=== PATIENT | female | born 1960 | race American Indian/Alaskan Native ===

== ENCOUNTER 2017-10-10 11:57 | Emergency (ER) | payer BC, OTHER ==
[2017-10-10 12:04] VITALS: RESP 18; TEMP 98.4; BMI 32.1
[2017-10-10] MEDS ORDERED: Acetaminophen 650mg/20.3ml solution UD PO STA (12:25)
[2017-10-10 13:16] LABS: BASO # 0.03 K/mm3 (0.0-2.0); BASO % 0.6 % (0.0-3.0); EOS # 0.2 (0.0-0.7); EOS % 3.2 % (1.5-5.0); GRAN # 2.77 (1.4-6.5); GRAN % 52.3 % (50.0-68.0); HEMOGLOBIN 11.8 g/dL (12.0-16.0); LYMPH # 2.1 (1.2-3.4); LYMPH % 39.6 % (22.0-35.0); MEAN CELL VOLUME 93.2 fl (80.0-105.0); MEAN CORPUSCULAR HGB CONC 33.2 g/dl (31.0-37.0); MEAN PLATELET VOLUME 8.9 fl (7.0-11.0); MONO # 0.2 (0.1-0.6); MONO % 4.3 % (1.0-6.0); RBC 3.81 10^6/uL (3.5-6.1); RED CELL DISTRIBUTION WIDTH 12.7 % (11.5-14.5); URINE APPEARANCE CLEAR (CLEAR); URINE BILIRUBIN NEGATIVE (NEGATIVE); URINE BLOOD NEGATIVE (NEGATIVE); URINE COLOR YELLOW (YELLOW); URINE GLUCOSE (UA) NEGATIVE (NEGATIVE); URINE LEUKOCYTE ESTERASE LARGE Leu/uL (NEGATIVE); URINE PROTEIN NEGATIVE mg/dL (<30 mg/dL); URINE UROBILINOGEN 0.2 E.U./dL (<1 E.U./dL); WHITE BLOOD COUNT 5.3 10^3/ul (4.5-11.0)
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
[2017-10-10 13:27] LABS: ALB/GLOB RATIO 1.1 (1.1-1.8); ALT/SGPT 29 U/L (7-56); AST/SGOT 24 U/L (14-36); BLOOD UREA NITROGEN 18 mg/dL (7-21); CALCIUM 9.3 mg/dL (8.4-10.5); GFR AFRICAN-AMERICAN > 60; GFR NON-AFRICAN AMERICAN > 60
[2017-10-10 13:29] LABS: INR 0.97 (0.93-1.08); PARTIAL THROMBOPLASTIN TIME 28.8 Seconds (25.1-36.5); PROTHROMBIN TIME 11.1 SECONDS (9.4-12.5)
--- NOTE | 2017-10-10 13:32 | CT ---
PROCEDURE: CT HEAD WITHOUT CONTRAST. HISTORY: reardon COMPARISON: 07/07/2015 TECHNIQUE: Axial computed tomography images were obtained through the head/brain without intravenous contrast. Radiation dose: Total exam DLP = 911 mGy-cm. This CT exam was performed using one or more of the following dose reduction techniques: Automated exposure control, adjustment of the mA and/or kV according to patient size, and/or use of iterative reconstruction technique. FINDINGS: HEMORRHAGE: No intracranial hemorrhage. BRAIN: No mass effect or edema. No atrophy or chronic microvascular ischemic changes. VENTRICLES: Unremarkable. No hydrocephalus. CALVARIUM: Unremarkable. PARANASAL SINUSES: Unremarkable as visualized. No significant inflammatory changes. MASTOID AIR CELLS: Unremarkable as visualized. No inflammatory changes. OTHER FINDINGS: None. IMPRESSION: No acute intracranial findings
[2017-10-10 13:38] LABS: TROPONIN I < 0.01 ng/mL
[2017-10-10 13:44] LABS: URINE BACTERIA FEW (NEG); URINE RBC NEGATIVE /hpf (0-2)
[2017-10-10 14:33] VITALS: BP 144/90; O2SAT 99
[2017-10-10 15:00] VITALS: PULSE 74
--- NOTE | 2017-10-10 16:05 | CARD ---
APPROVED REPORT EKG Measurement Heart [id number] <Conclusion> Normal sinus rhythm Normal ECG
== END 2017-10-10 14:30 | disposition home or self-care (01) ==
LOC: ED 11:57
DX: I10 Essential (primary) hypertension (principal); R51 Headache

== ENCOUNTER 2018-05-21 15:17 | Outpatient (CLI) | payer OTHER, BC | END 2018-05-21 15:18 | disposition home or self-care (01) | LOC: RAD 15:17 ==